=== PATIENT | female | born 1990 | race Caucasian/White ===

== ENCOUNTER 2016-08-01 16:40 | Emergency (ER) | payer OTHER ==
[~2016-08-01] VITALS: Ht 157.5 cm; Wt 60.1 kg
[~2016-08-01 16:40] MED LIST: IBUP-1428 PO; PANT40TA PO
[2016-08-01 16:45] VITALS: TEMP 36.4; Ht 157.5 cm; Wt 60.1 kg
[2016-08-01] MEDS ORDERED: ESCI1TAB10 PO (17:15)
[2016-08-01] MEDS ORDERED: CLON0.5T3 PO (17:16)
[2016-08-01 17:23] LABS: BASO % 0.4 %; BASO ABS # 0.02 K/uL (0-0.2); COMPLETE YES; HEMATOCRIT 42.2 % (37-47); IG% 0.2 %; LYMPH % 30.5 %; LYMPH ABS # 1.53 K/uL (1.2-3.4); MEAN CELL VOLUME 83.9 fL (80-100); MEAN CORPUSCULAR HEMOGLOBIN 30.8 pg (25-34); MEAN CORPUSCULAR HGB CONC 36.7 g/dl (32-36); MEAN PLATELET VOLUME 9.3 fL (7.4-10.4); NEUT % 58.9 %; PLATELET COUNT 243 K/uL (130-400); RED BLOOD COUNT 5.03 M/uL (4.2-5.4); WHITE BLOOD COUNT 5.01 K/uL (4.8-10.8)
[2016-08-01 17:31] LABS: URINE APPEARANCE CLEAR (CLEAR); URINE BILIRUBIN NEG (NEG); URINE COLOR YELLOW; URINE NITRITE NEG (NEG); URINE PH 5.5 (4.5-7.5); UROBILINOGEN NEG (NEG); ZZUR CULT IF INDIC CLEAN CATCH NO
[2016-08-01 17:37] LABS: MANUAL MICROSCOPIC REQUIRED? NO; REVIEW REQ? NO
[2016-08-01 17:47] LABS: BUN/CREATININE RATIO 13.3 (10-20); CREATININE 0.88 mg/dl (0.60-1.20); POTASSIUM 3.6 mmol/L (3.5-5.1)
--- NOTE | 2016-08-01 17:48 | EMERGENCY ROOM VISIT NOTE ---
History First contact with patient: 16:54 Chief Complaint: ABDOMINAL PAIN Stated Complaint: PAIN AND BURNING IN LWR STOMACH AND BACK Nursing Triage Summary: RLQ pain, N&V x 4 days, tubal ligation in Apr 2016. History of Present Illness The patient is a 26 year old female who presents to the Emergency Room with complaints of right lower abdominal pain. The patient states that she has had a sharp pain in her right lower abdomen for the past 4 days. She states that it is a stabbing pain and rates the discomfort an 8/10. She did take one Tylenol with codeine for pain with some relief. She had a tubal ligation in April of last year. She states she did start her menstrual period 4 days ago and it has been slightly heavier than normal. She reports that today, she began to have burning which radiated into her back. She has had associated nausea, but no vomiting. She does report a decreased appetite. She denies any history of similar symptoms. She denies any urinary symptoms or history of recurrent urinary tract infections. She has not had any new sexual partners recently. She denies any fevers, abnormal vaginal discharge, changes in bowel movements, chest pain or shortness of breath. She was seen at an urgent care center and sent here for further evaluation. Review of Systems A complete 10-point Review of Systems was discussed with the patient, with pertinent positives and negatives listed in the History of Present Illness. All remaining Review of Systems questions can be considered negative unless otherwise specified. Social History Smoking Status: Never Smoker Marital Status: in relationship Housing Status: lives with significant other Occupation Status: employed Current/Historical Medications Scheduled Escitalopram Oxalate (Lexapro), 20 MG PO DAILY Scheduled PRN Clonazepam (Klonopin), 0.5 MG PO TID PRN for Anxiety Ibuprofen Tab (Motrin), 800 MG PO Q8H PRN for Pain Allergies Coded Allergies: Penicillins (Verified Allergy, Mild, RASH, 12/26/12) Physical Exam Vital Signs Date Time Temp Pulse Resp B/P Pulse Ox O2 Delivery O2 Flow Rate FiO2 08/01/16 18:30 56 18 115/77 98 Room Air 08/01/16 16:45 36.4 60 20 111/80 99 Room Air Physical Exam VITALS: Vitals are noted on the nurse's note and reviewed by myself. Vital signs stable. GENERAL: This is a 26-year-old female, in no acute distress, nondiaphoretic, well-developed well-nourished. SKIN: Capillary reflex less than 2 seconds. HEENT: Normocephalic. PERRLA. EOMI. Nares patent. Mucous membranes moist. Neck is supple without nuchal rigidity. HEART: Regular rate and rhythm without murmurs gallops or rubs. LUNGS: Clear to auscultation bilaterally without wheezes, rales or rhonchi. No retractions or accessory muscle use. ABDOMEN: Positive bowel sounds x 4. Soft and nondistended. There is tenderness over the right pelvic region. No guarding or rebound tenderness. NEURO: Patient was alert and oriented to person place and time. Medical Decision & Procedures ER Provider Diagnostic Interpretation: ULTRASOUND OF THE PELVIS IMPRESSION: 1. No acute sonographic abnormality is identified in the pelvis. 2. A small volume of free fluid in the cul-de-sac is likely within physiologic limits. Laboratory Results 08/01/16 17:00 Red Blood Count 5.03, Mean Corpuscular Volume 83.9, Mean Corpuscular Hemoglobin 30.8, Mean Corpuscular Hemoglobin Concent 36.7, Mean Platelet Volume 9.3, Neutrophils (%) (Auto) 58.9, Lymphocytes (%) (Auto) 30.5, Monocytes (%) (Auto) 8.0, Eosinophils (%) (Auto) 2.0, Basophils (%) (Auto) 0.4, Neutrophils # (Auto) 2.95, Lymphocytes # (Auto) 1.53, Monocytes # (Auto) 0.40, Eosinophils # (Auto) 0.10, Basophils # (Auto) 0.02 08/01/16 17:00 Test 08/01/16 16:55 08/01/16 17:00 Urine Color YELLOW Urine Appearance CLEAR (CLEAR) Urine pH 5.5 (4.5-7.5) Urine Specific [place] 1.020 (1.000-1.030) Urine Protein NEG (NEG) Urine Glucose (UA) NEG (NEG) Urine Ketones NEG (NEG) Urine Occult Blood 1+ (NEG) Urine Nitrite NEG (NEG) Urine Bilirubin NEG (NEG) Urine Urobilinogen NEG (NEG) Urine Leukocyte Esterase NEG (NEG) Urine WBC (Auto) 1-5 /hpf (0-5) Urine RBC (Auto) 5-10 /hpf (0-4) Urine Hyaline Casts (Auto) 1-5 /lpf (0-5) Urine Epithelial Cells (Auto) 10-20 /lpf (0-5) Urine Bacteria (Auto) NEG (NEG) White Blood Count 5.01 K/uL (4.8-10.8) Red Blood Count 5.03 M/uL (4.2-5.4) Hemoglobin 15.5 g/dL (12.0-16.0) Hematocrit 42.2 % (37-47) Mean Corpuscular Volume 83.9 fL (80-100) Mean Corpuscular Hemoglobin 30.8 pg (25-34) Mean Corpuscular Hemoglobin Concent 36.7 g/dl (32-36) Platelet Count 243 K/uL (130-400) Mean Platelet Volume 9.3 fL (7.4-10.4) Neutrophils (%) (Auto) 58.9 % Lymphocytes (%) (Auto) 30.5 % Monocytes (%) (Auto) 8.0 % Eosinophils (%) (Auto) 2.0 % Basophils (%) (Auto) 0.4 % Neutrophils # (Auto) 2.95 K/uL (1.4-6.5) Lymphocytes # (Auto) 1.53 K/uL (1.2-3.4) Monocytes # (Auto) 0.40 K/uL (0.11-0.59) Eosinophils # (Auto) 0.10 K/uL (0-0.5) Basophils # (Auto) 0.02 K/uL (0-0.2) RDW Standard Deviation 36.2 fL (36.4-46.3) RDW Coefficient of Variation 11.9 % (11.5-14.5) Immature Granulocyte % (Auto) 0.2 % Immature Granulocyte # (Auto) 0.01 K/uL (0.00-0.02) Anion Gap 9.0 mmol/L (3-11) Est Creatinine Clear Calc Drug Dose 76.0 ml/min Estimated GFR () 104.4 Estimated GFR (Non- 90.0 BUN/Creatinine Ratio 13.3 (10-20) Calcium Level 9.0 mg/dl (8.5-10.1) Total Bilirubin 0.6 mg/dl (0.2-1) Aspartate Amino Transf (AST/SGOT) 17 U/L (15-37) Alanine Aminotransferase (ALT/SGPT) 20 U/L (12-78) Alkaline Phosphatase 91 U/L (45-117) Total Protein 8.5 gm/dl (6.4-8.2) Albumin 4.4 gm/dl (3.4-5.0) Globulin 4.1 gm/dl (2.5-4.0) Albumin/Globulin Ratio 1.1 (0.9-2) Lipase 111 U/L (73-393) Human Chorionic Gonadotropin, Qual NEG (NEG) Medical Decision Differential diagnosis includes appendicitis, cholecystitis, ovarian cyst, ovarian torsion, colitis, cholecystitis, constipation, mesenteric adenitis, among others. The patient was evaluated as above. Labs were drawn and IV access was obtained. Imaging studies were performed and read by radiology as above. The patient declined analgesics. The patient was reassessed multiple times during their stay in the emergency department and remained in stable condition. The patient is a 26-year-old female who presents today complaining of right lower quadrant abdominal pain. Exam did reveal some tenderness of the right lower quadrant. The patient does not have a surgical abdomen. Labs revealed no leukocytosis, anemia or concerning electrolyte abnormality. Urinalysis was not suggestive of infection. Urine was negative. Pelvic ultrasound was performed and was unremarkable. The patient was reevaluated. I am not highly suspicious of appendicitis, as the patient's pain has been there for 4 days and she does not have a fever, vomiting or leukocytosis. I did discuss options of care with the patient including observation of symptoms at home with close follow-up versus performing a CT scan at this time. The patient preferred to follow up with her primary care provider in one to 2 days. She will return if her symptoms worsen or if she develops any new/concerning symptoms. Based on the patient's presentation, lab results, and imaging studies, I feel the patient is stable for outpatient treatment. The patient's case was reviewed with Dr. Akbar, ED attending physician, who agreed with my assessment and treatment plan. Discharge instructions were reviewed with the patient. The patient verbalized understanding of my assessment and treatment plan and was discharged home in good condition. Impression Primary Impression: Right lower quadrant abdominal pain Departure Information Dispostion Home / Self-Care Condition GOOD Prescriptions Ibuprofen Tab (MOTRIN) 800 Mg Tab 800 MG PO Q8H Y for Pain, #24 TAB For Initial Treatment Prov: Bhavya Carvajal .EM 08/01/16 Referrals Rut Dillon M.D. (PCP) Patient Instructions My [facility] Additional Instructions You have been treated in the Emergency Department your Abdominal Pain. Laboratory results and imaging studies have ruled out any emergent causes for your abdominal pain which would warrant admission or surgery. Take the ibuprofen as prescribed. Drink plenty of water and stay well hydrated. You should have a follow-up appointment with your primary care provider in 1-2 days for a recheck. Return to the emergency department if your symptoms persist despite treatment plan outlined above or if the following symptoms occur: Vomiting, fevers, or any other new/concerning symptoms.
[2016-08-01 17:50] LABS: ALB/GLOB RATIO 1.1 (0.9-2)
[2016-08-01 18:01] LABS: PREG INTERNAL NEGATIVE QC NEG CLEAR BACKGROUND; PREG INTERNAL POSITIVE QC POS CONTROL LINE
--- NOTE | 2016-08-01 18:08 | DIAGNOSTIC IMAGING REPORT ---
ULTRASOUND OF THE PELVIS CLINICAL HISTORY: Right pelvic pain. COMPARISON STUDY: No priors. TECHNIQUE: Real-time, grayscale, and color flow sonography of the pelvis is performed both transabdominally and endovaginally. Images are reviewed in the transverse and longitudinal planes. FINDINGS: Uterus: The uterus is normal in size and echotexture, measuring 9.0 x 4.8 x 7.4 cm. Nabothian cysts are identified in the cervix. Endometrium: The endometrium is top normal in thickness, measuring up to 1.2 cm. Trace fluid is noted in the fundal region. Ovaries: The ovaries are normal in size and morphology. The right ovary measures 3.6 x 1.3 x 2.3 cm and the left ovary measures 3.6 x 1.4 x 1.8 cm. There are small bilateral ovarian follicles. Normal Doppler waveforms are shown within both ovaries. Pelvis: There is a small volume of free fluid in the cul-de-sac. No concerning adnexal lesion is seen. IMPRESSION: 1. No acute sonographic abnormality is identified in the pelvis. 2. A small volume of free fluid in the cul-de-sac is likely within physiologic limits. Electronically signed by: Julio Powell M.D. 08/01/2016 6:06 PM Dictated Date/Time: 08/01/2016 6:04 PM
[2016-08-01 18:30] VITALS: BP 115/77; PULSE 56; O2SAT 98
[2016-08-01] MEDS ORDERED: IBUP-1451 PO (18:42)
== END 2016-08-01 19:01 | disposition home or self-care (01) ==
LOC: C.EDB 16:41 → C.EDA 19:01
DX: R10.31 Right lower quadrant pain (principal); Z79.899 Other long term (current) drug therapy